=== PATIENT | female | born 1965 | race African-American/Black ===

== ENCOUNTER 2019-02-10 11:09 | Inpatient (IN) | payer OTHER ==
[2019-02-01 12:12] VITALS: BMI 35.9
[2019-02-10] MEDS ORDERED: BUPIVACAINE LIPOSOME/PF (EXPAREL) 266 MG/20 ML VIAL ONE (11:50)
[2019-02-10] MEDS ORDERED: SODIUM CHLORIDE 0.9% P/F 10 ML VIAL IJ ONE (11:50)
[2019-02-10] MEDS ORDERED: MIDAZOLAM HCL 2 MG/2 ML SINGLE DOSE VIAL ONE ×2 (11:50→15:04)
[2019-02-10] MEDS ORDERED: TRANEXAMIC ACID 1000 MG/10 ML VIAL IVPUSH ONE (13:20)
[2019-02-10] MEDS ORDERED: VANCOMYCIN 1,000 MG in DEXTROSE 5%-WATER - 250 ML IVPB ONE (13:20)
[2019-02-10] MEDS ORDERED: CEFAZOLIN 2 GM in DEXTROSE 5%-WATER - 50 ML IVPB ONE (13:20)
[2019-02-10] MEDS ORDERED: BUPIVACAINE HCL/PF 0.5% (5MG/ML) 10 ML VIAL ONE (15:02)
--- NOTE | 2019-02-10 15:12 | HP ---
CHIEF COMPLAINT: PCP: Dr. Burrell [facility] [phone] HISTORY OF PRESENT ILLNESS: 54 year-old female with a PMH significant for HLD, asthma, and right knee osteoarthritis s/p right total knee replacement today with Dr. Colby Harvey. Recent Travel: No PAST MEDICAL HISTORY: Hyperlipidemia Asthma Osteoarthritis PAST SURGICAL HISTORY: None reported Social History: Smoking: never Alcohol: social Drugs: no Allergies No Known Allergies Allergy (Verified 02/10/19 13:59) HOME MEDICATIONS: Home Medications Medication Instructions Recorded Cholecalciferol (Vitamin D3) 2,000 unit PO DAILY 02/01/19 [Vitamin D] Ferrous Sulfate 325 mg PO DAILY 02/01/19 Meloxicam 15 mg PO DAILY PRN 02/01/19 REVIEW OF SYSTEMS CONSTITUTIONAL: Absent: fever, chills, diaphoresis, generalized weakness, malaise, loss of appetite, weight change HEENT: Absent: rhinorrhea, nasal congestion, throat pain, throat swelling, difficulty swallowing, mouth swelling, ear pain, eye pain, visual changes CARDIOVASCULAR: Absent: chest pain, syncope, palpitations, irregular heart rate, lightheadedness , peripheral edema RESPIRATORY: Absent: cough, shortness of breath, dyspnea with exertion, orthopnea, wheezing, stridor, hemoptysis GASTROINTESTINAL: Absent: abdominal pain, abdominal distension, nausea, vomiting, diarrhea, constipation, melena, hematochezia GENITOURINARY: Absent: dysuria, frequency, urgency, hesitancy, hematuria, flank pain, genital pain MUSCULOSKELETAL: Absent: myalgia, arthralgia, joint swelling, back pain, neck pain SKIN: Absent: rash, itching, pallor HEMATOLOGIC/IMMUNOLOGIC: Absent: easy bleeding, easy bruising, lymphadenopathy, frequent infections ENDOCRINE: Absent: unexplained weight gain, unexplained weight loss, heat intolerance, cold intolerance NEUROLOGIC: Absent: headache, focal weakness or paresthesias, dizziness, unsteady gait, seizure, mental status changes, bladder or bowel incontinence PSYCHIATRIC: Absent: anxiety, depression, suicidal or homicidal ideation, hallucinations. PHYSICAL EXAMINATION Vital Signs - 24 hr 02/10/19 02/10/19 14:00 14:06 Temperature 97.6 F Pulse Rate 76 Respiratory 16 Rate Blood Pressure 128/75 O2 Sat by Pulse 98 Oximetry (%) GENERAL: Awake, alert, and fully oriented, in no acute distress. HEAD: Normal with no signs of trauma. EYES: Pupils equal, round and reactive to light, extraocular movements intact, sclera anicteric, conjunctiva clear. No lid lag. LUNGS: Breath sounds equal, clear to auscultation bilaterally. No wheezes, and no crackles. No accessory muscle use. HEART: Regular rate and rhythm, normal S1 and S2 ABDOMEN: Soft, nontender, not distended UPPER EXTREMITIES: 2+ pulses, warm, well-perfused. No cyanosis. No clubbing. No peripheral edema. RIGHT LOWER EXTREMITY: Leg immobilizer, ice pack, surgical dressings c/d/i; flex /extend toes, diminished sensory bilaterally NEUROLOGICAL: Cranial nerves II-XII intact. Normal speech. Laboratory Results - last 24 hr 02/10/19 13:30 Urine HCG, Qual Negative Pre op BUN 13 Cr 0.5 Hgb 13.6 Intra op Ancef 2g x 1 Vanc 1g x 1 LR 1,200 mL EBL <100 mL ASSESSMENT/PLAN: 54 year-old female with a PMH significant for HLD, asthma, and right knee osteoarthritis s/p right total knee replacement. Right total knee replacement --POD #0 --perioperative antibiotics per surgery --pain management per surgery --ASA 81mg BID --protonix --bowel regimen --incentive spirometry --Hemovac drain, monitor output --monitor urine output; if no UOP in [address] Darwin Harvey prior to intervention FEN Fluids: LR @ 75mL/hr Electrolytes: replete as indicated Nutrition: regular diet DVT prophylaxis: OOB, ambulation, SCDs, TEDs, ASA 81mg BID Physical therapy Dispo: continues to require inpatient care. Full code. Visit type - Emergency Visit Emergency Visit: No - New Patient This patient is new to me today: Yes Date on this admission: 02/10/19 - Critical Care Critical Care patient: No
[2019-02-10] MEDS ORDERED: oxyCODONE HCL 5 MG TABLET PO PRN (15:28)
[2019-02-10] MEDS ORDERED: ONDANSETRON 4 MG/2 ML VIAL IVPUSH PRN (15:28)
[2019-02-10] MEDS ORDERED: LACTATED RINGERS SOLUTION 1,000 ML IV SCH ×3 (15:30→18:48)
[2019-02-10] MEDS ORDERED: VANCOMYCIN 1,000 MG VIAL (RESTRICTED TO ID ONLY) ONE (16:06)
[2019-02-10] MEDS ORDERED: ceFAZolin SODIUM 1 GM VIAL ONE ×2 (16:06→17:54)
[2019-02-10] MEDS ORDERED: TRANEXAMIC ACID 1000 MG/10 ML VIAL ONE (16:06)
[2019-02-10] MEDS ORDERED: ONDANSETRON 4 MG/2 ML VIAL ONE (16:06)
[2019-02-10] MEDS ORDERED: PROPOFOL 20 ML ONE ×2 (16:18→16:57)
[2019-02-10] MEDS ORDERED: ACETAMINOPHEN 1000 MG/100 ML VIAL (NON FORMULARY) IVPB ONE (18:22)
[2019-02-10] MEDS ORDERED: MAG HYDROX/AL HYDROX/SIMETH 30 ML UNIT-DOSE CUP PO PRN (18:26)
[2019-02-10] MEDS ORDERED: MAGNESIUM HYDROX 2400MG/30ML ORAL SUSPENSION 30 ML CUP PO PRN (18:26)
--- NOTE | 2019-02-10 18:38 | OP ---
Operative Note - Note: Operative Date: 02/10/19 Pre-Operative Diagnosis: right knee osteoarthritis Operation: s/p right total knee replacment Surgeon: Colby Harvey [employer] Inspector: Lorri Rosenberg Anesthesiologist/DEPUTY CONTROLLER: Selvin Schultz Anesthesia: General Estimated Blood Loss (mls): 50 Fluid Volume Replaced (mls): 1,200 Operative Report Dictated: Yes
--- NOTE | 2019-02-10 18:47 | SURG ---
Surgery Manager Commercial Sales Note Manager Commercial Sales: Lorri Rosenberg PA-C Date of Service: 02/10/19 Diagnosis: right knee osteoarthritis Procedure: =s/p right total knee replacement I was present for the entirety of the operative procedure. For further detail, please refer to operative report. Visit type - Case Type Case Type: Scheduled - Emergency Emergency Visit: No - New patient This patient is new to me today: Yes Date on this admission: 02/10/19
[2019-02-10] MEDS: oxyCODONE HCL 10 MG SUSTAINED ACTING TABLET PO SCH (21:35)
[2019-02-10] MEDS: ASPIRIN COATED 81 MG TABLET.EC PO SCH (21:35)
[2019-02-10] MEDS: SENNOSIDES/DOCUSATE COMBO (SENNA PLUS) TABLET (UD) PO SCH (21:36)
[2019-02-10] MEDS: ONDANSETRON 4 MG/2 ML VIAL IVPUSH PRN (23:41)
[2019-02-11] MEDS: oxyCODONE HCL 5 MG TABLET PO PRN ×2 (00:23→04:59)
[2019-02-11] MEDS: CEFAZOLIN 2 GM/D5W 2 GM/50 ML ML IVPB SCH ×2 (02:29→10:20)
--- NOTE | 2019-02-11 07:47 | PN ---
Progress Note (short form) - Note Progress Note: Surgery POD #1 Right TKA patient seen and examined at bedside c/o pain which is not controlled by the pain medication. She has not been OOB yet with PT and states she vomited once last night. She denies any CP, SOB, N/V, fever or chills. Vital Signs Temp 99.5 F 02/11/19 04:00 Pulse 89 02/11/19 04:00 Resp 18 02/11/19 04:00 BP 120/64 02/11/19 04:00 Pulse Ox 96 02/11/19 04:00 Intake & Output 02/10/19 02/10/19 02/11/19 11:59 23:59 11:59 Intake Total 4700 Output Total 0 20 Balance 4700 -20 Weight 209 lb Intake: IV 1300 Oral 400 Other 3000 Output: Drainage 20 TAD# 20 Urine 0 Void 0 Other: Voiding Method Bedpan Bedpan # Unmeasured Voids Void 1 Height 5 ft 4 in Body Mass Index (BMI) 35.9 Weight Measurement Method Standing Scale CBC, BMP 02/11/19 07:28 02/11/19 07:28 PE: A&Ox3, NAD Unlabored resp on RA right knee dressing c/d/i with no evidence of active bleeding, hemavac drain in good position and draining bloody d/c. LE compartments soft, supple with mild edema and TTP of right LE appropriate to status. 5/5 dorsi/plantar flexion with +2 DP pulses. Problem List - Problems (1) Knee osteoarthritis Assessment/Plan: POD#1 patient with pain not well controlled. I discussed the pain management options with anesthesia and will adjust accordingly. -Scheduled Tylenol around the clock -Oxycodone 10mg PO once now -OOB with PT, WBAT with assist -DVT prophylaxis with b/l teds, scds and Aspirin 81mg BIDx 6 wks -Encourage daily IS -empty and measure drain -rolled towel under ankle at all times -strict I&O -D/c planning for tomorr vs Friday Code(s): M17.10 - UNILATERAL PRIMARY OSTEOARTHRITIS, UNSPECIFIED KNEE
[2019-02-11 08:00] LABS: CALCIUM 8.3 mg/dl (8.5-10); CREATININE 0.6 mg/dl (0.55-1.3)
[2019-02-11 08:02] LABS: HEMATOCRIT 34.4 % (32.4-45.2); HEMOGLOBIN 11.9 GM/dl (10.7-15.3); MCH 29.3 pg (25.7-33.7); MCHC 34.5 g/dl (32.0-36.0); MEAN CELL VOLUME 84.8 fl (80-96); MEAN PLT VOLUME 8.7 fl (7.5-11.1); PLATELET COUNT 244 K/MM3 (134-434); RBC 4.05 M/mm3 (3.60-5.2); RDW 13.4 % (11.6-15.6); WHITE BLOOD COUNT 7.8 K/mm3 (4.0-10.8)
--- NOTE | 2019-02-11 08:09 | PN ---
Physical Exam: SUBJECTIVE: Patient seen and examined. Was observed earlier today by PT and surgical PA to be overly sedated. Patient also with nausea. At time of this exam patient is much more alert but still with nausea. Discussed with patient high dose opioids can cause nausea, constipation, and decreased ability to participate in PT. Patient expressed understanding and agrees to lowering of dose of oxycodone. OBJECTIVE: Vital Signs Period Temp Pulse Resp BP Sys/Kowalski Pulse Ox Last 24 Hr 97.6 F-99.5 F 56-89 16-18 120-133/64-82 96-100 GENERAL: Awake, alert, and fully oriented, in no acute distress. LUNGS: Breath sounds equal, clear to auscultation bilaterally. No wheezes, and no crackles. No accessory muscle use. HEART: Regular rate and rhythm, normal S1 and S2 ABDOMEN: Soft, nontender, not distended UPPER EXTREMITIES: 2+ pulses, warm, well-perfused. No cyanosis. No clubbing. No peripheral edema. RIGHT LOWER EXTREMITY: Leg immobilizer, ice pack, surgical dressings c/d/i; flex /extend toes NEUROLOGICAL: Cranial nerves II-XII intact. Normal speech. ASSESSMENT/PLAN: 54 year-old female with a PMH significant for HLD, asthma, and right knee osteoarthritis s/p right total knee replacement. Right total knee replacement --POD #1 --perioperative antibiotics per surgery --pain management per surgery --ASA 81mg BID --protonix --bowel regimen --incentive spirometry --Hemovac drain, monitor output --monitor urine output FEN Fluids: PO intake adequate Electrolytes: replete as indicated Nutrition: regular diet DVT prophylaxis: OOB, ambulation, SCDs, TEDs, ASA 81mg BID Physical therapy Dispo: continues to require inpatient care. Full code. Laboratory Results - last 24 hr 02/10/19 02/11/19 13:30 07:28 WBC 7.8 RBC 4.05 Hgb 11.9 Hct 34.4 MCV 84.8 MCH 29.3 MCHC 34.5 RDW 13.4 Plt Count 244 MPV 8.7 Urine HCG, Qual Negative Active Medications Generic Name Dose Route Start Last Admin Trade Name Freq PRN Reason Stop Dose Admin Acetaminophen 1,000 mg 02/11/19 12:30 Tylenol - PO 02/12/19 00:31 Q6H PINO Al Hydroxide/Mg Hydroxide 30 ml 02/10/19 18:26 Mylanta Oral Suspension - PO Q4H PRN DYSPEPSIA Aspirin 80 mg 02/10/19 22:00 02/10/19 21:35 Ecotrin - PO 80 mg BID PINO Administration Cefazolin Sodium/Dextrose 2 gm in 50 mls @ 100 mls/hr 02/11/19 02:00 02:29 Ancef 2 Gm Premixed Ivpb - IVPB 02/11/19 10:29 100 mls/hr Q8H-IV PINO Administration Magnesium Hydroxide 30 ml 02/10/19 18:26 Milk Of Magnesia - PO PRN PRN CONSTIPATION Multivitamins/Minerals/Vitamin C 1 tab 02/11/19 10:00 Tab-A-Vit - PO DAILY PINO Ondansetron HCl 4 mg 02/10/19 18:26 02/10/19 23:41 Zofran Injection IVPUSH 4 mg Q6H PRN Administration NAUSEA Oxycodone HCl 5 mg 02/10/19 15:28 Roxicodone - PO Q4H PRN PAIN LEVEL 1-5 Oxycodone HCl 10 mg 02/10/19 15:28 02/11/19 04:59 Roxicodone - PO 10 mg Q4H PRN Administration PAIN LEVEL 6-10 Oxycodone HCl 10 mg 02/10/19 22:00 02/10/19 21:35 Oxycontin - PO 10 mg BID PINO Administration Oxycodone HCl 10 mg 02/11/19 08:15 Roxicodone - PO 02/11/19 08:16 ONCE ONE Pantoprazole Sodium 40 mg 02/11/19 10:00 Protonix - PO DAILY [facility] Senna/Docusate Sodium 2 tablet 02/10/19 22:00 02/10/19 21:36 Pericolace - PO 2 tablet BID PINO Administration Pre op BUN 13 Cr 0.5 Hgb 13.6 Intra op Ancef 2g x 1 Vanc 1g x 1 LR 1,200 mL EBL <100 mL ASSESSMENT/PLAN: 54 year-old female with a PMH significant for HLD, asthma, and right knee osteoarthritis s/p right total knee replacement. Right total knee replacement --POD #1 --perioperative antibiotics complete --pain management per surgery; deescalate oxycodone dosing --ASA 81mg BID --protonix --bowel regimen --incentive spirometry --Hemovac drain, monitor output --monitor urine output FEN Fluids: PO intake adequate Electrolytes: replete as indicated Nutrition: regular diet DVT prophylaxis: OOB, ambulation, SCDs, TEDs, ASA 81mg BID Physical therapy Dispo: continues to require inpatient care. Full code. Visit type - Emergency Visit Emergency Visit: No - New Patient This patient is new to me today: No - Critical Care Critical Care patient: No
[2019-02-11] MEDS: ONDANSETRON 4 MG/2 ML VIAL IVPUSH PRN ×2 (08:10→13:46)
[2019-02-11] MEDS ORDERED: oxyCODONE HCL 5 MG TABLET PO ONE (08:15)
[2019-02-11 08:29] LABS: MAGNESIUM 1.6 mg/dL (1.8-2.4)
[2019-02-11] MEDS: ACETAMINOPHEN 500 MG TABLET (FP) PO SCH ×3 (08:44→21:09)
[2019-02-11] MEDS ORDERED: MAGNESIUM SULF 50% (8.12 MEQ/2 ML-1 GM VIAL) IVPB ONE (08:53)
[2019-02-11] MEDS ORDERED: MAGNESIUM SULFATE IN WATER 2 GM/50 ML IVPB IVPB ONE (09:15)
[2019-02-11] MEDS: SENNOSIDES/DOCUSATE COMBO (SENNA PLUS) TABLET (UD) PO SCH ×2 (10:15→21:10)
[2019-02-11] MEDS: MULTIVITAMINS (DAILY MVI) TABLET (FP) PO SCH (10:16)
[2019-02-11] MEDS: PANTOPRAZOLE 40 MG TABLET (FP) PO SCH (10:17)
[2019-02-11] MEDS: oxyCODONE HCL 10 MG SUSTAINED ACTING TABLET PO SCH ×2 (10:17→21:22)
[2019-02-11] MEDS: ASPIRIN COATED 81 MG TABLET.EC PO SCH ×3 (10:19→21:10)
--- NOTE | 2019-02-11 10:56 | PN ---
Progress Note (short form) - Note Progress Note: 54F POD#1 for R TKR under spinal anesthesia with PNB. This am pt. seen participating in physical therapy. No anesthesia related complications. Pt. ambulating. Pain adequately controlled. Continue management per primary team.
[2019-02-11] MEDS ORDERED: ACETAMINOPHEN 500 MG TABLET (FP) PO SCH (12:30)
--- NOTE | 2019-02-11 13:33 | OP ---
DATE OF OPERATION: DATE OF DICTATION: 02/10/2019 SURGEON: Colby Harvey MD ELECTRONIC ASSEMBLER: ULI Eric PREOPERATIVE DIAGNOSES: Right tricompartment osteoarthritis, knee with fixation deformity of 25 degrees and fixed varus deformity of 20 degrees. POSTOPERATIVE DIAGNOSES: Right tricompartment osteoarthritis, knee with fixation deformity of 25 degrees and fixed varus deformity of 20 degrees. OPERATION PERFORMED: Right posterior-stabilized, cemented total knee arthroplasty ([place]). Patient correctly identified, brought to the operating room. Right lower extremity was prepped and draped in the routine manner with Betadine scrub solution, wiped off with alcohol. DuraPrep applied. Midline incision was utilized. A subvastus approach was utilized. The proximal and medial aspect of the tibia was dissected along the course of the tibia up to the joint line and then curved backwards, back to the posteromedial aspect of the femur, leaving a cuff of tissue of 2 cm and this cut parallel to the border of vastus medialis. This extended all the way around the back of the vastus medialis to lift the vastus medialis well above the suprapatellar pouch. A blunt Hohmann was placed between the quadriceps muscles and the actual bone bed. The patella was subluxed laterally. The Hoffa fat pad was resected. Severe tricompartment arthritis encountered with extensive meniscal disruption. Using the [place] instrumentation, the tibia was cut to neutral to receive a size 5 tibial tray. The appropriate keel punch and drill guides were made. Drilling was to accommodate a stubby placed on the distal tip of the tibia. The femur itself was cut with 2 mm proximalization of the joint line because of the fixation deformity. The bone cuts were made with the appropriate jig set at 3 degrees of external rotation and 4 degrees of valgus. The bone cuts were made. The flexion gaps and the extension gaps were measured at 9 mm and stable. The trial components revealed excellent seating of the implants and full stability in the coronal and sagittal plane, both at 0 and 90 degrees of flexion and shock test, that is test of the medial collateral ligament in the medial compartment of the joint, was most satisfactory. The talar cut was made from [place] line to patellar ligament. The appropriate lug holes were drilled into the patella. Once we were happy with the trialing of the femoral, tibial, and patellar components and the knee was balanced with an excellent full range of motion and complete stability in the coronal and sagittal roatational plane as noted above cementing was in 1 stage with standard cement. All extraneous cement was removed after it had cured. A 9-mm polyethylene posterior-stabilized component inserted. This brought about the exact same findings as the trialing components. Wounds were thoroughly lavaged. No complications. Closure: Retinacular tissue 1 Vicryl, subcutaneous 1 and 2-0 Vicryl, skin 3-0 Monocryl and Steri-Strips. Drainage: A 1/8-inch Hemovac brought out laterally, draining the vastus bed. MD CONOR Urban/[id number] MTDD
[2019-02-12 06:23] VITALS: BP 140/72; PULSE 88; TEMP 98.7
[2019-02-12] MEDS ORDERED: ACETAMINOPHEN 325 MG TABLET (FP) PO ONE (07:45)
[2019-02-12 07:57] LABS: HEMATOCRIT 33.9 % (32.4-45.2); HEMOGLOBIN 11.2 GM/dl (10.7-15.3); MCHC 33.1 g/dl (32.0-36.0); MEAN CELL VOLUME 84.4 fl (80-96); MEAN PLT VOLUME 8.8 fl (7.5-11.1); PLATELET COUNT 238 K/MM3 (134-434); RBC 4.01 M/mm3 (3.60-5.2); RDW 13.4 % (11.6-15.6); WHITE BLOOD COUNT 9.7 K/mm3 (4.0-10.8)
--- NOTE | 2019-02-12 07:58 | DS ---
"Physical Exam: SUBJECTIVE: Patient seen and examined. Feels much better after stopping opioids. Got significant pain relief with Toradol. Able to participate in two PT sessions today. OBJECTIVE: Vital Signs Period Temp Pulse Resp BP Sys/Kowalski Pulse Ox Last 24 Hr 97.6 F-99.0 F 68-88 17-18 120-140/64-78 94-99 PHYSICAL EXAM GENERAL: Awake, alert, and fully oriented, in no acute distress. LUNGS: Breath sounds equal, clear to auscultation bilaterally. No wheezes, and no crackles. No accessory muscle use. HEART: Regular rate and rhythm, normal S1 and S2 ABDOMEN: Soft, nontender, not distended UPPER EXTREMITIES: 2+ pulses, warm, well-perfused. No cyanosis. No clubbing. No peripheral edema. RIGHT LOWER EXTREMITY: Leg immobilizer, ice pack, surgical dressings c/d/i; flex /extend toes NEUROLOGICAL: Cranial nerves II-XII intact. Normal speech. LABS Laboratory Results - last 24 hr 02/11/19 02/11/19 07:28 07:28 WBC 7.8 RBC 4.05 Hgb 11.9 Hct 34.4 MCV 84.8 MCH 29.3 MCHC 34.5 RDW 13.4 Plt Count 244 MPV 8.7 Sodium 134 L Potassium 4.0 Chloride 99 Carbon Dioxide 26 Anion Gap 9 BUN 9.0 Creatinine 0.6 Est GFR (CKD-EPI)AfAm 118.93 Est GFR (CKD-EPI)NonAf 102.61 Random Glucose 139 H Calcium 8.3 L Magnesium 1.6 L HOSPITAL COURSE: Date of Admission:02/10/19 Date of Discharge: 02/12/19 54 year-old female with a PMH significant for HLD, asthma, and right knee osteoarthritis s/p right total knee replacement on 02/10/[address] Colby Harvey. Right total knee replacement --perioperative antibiotics complete --did not tolerate opioids, became oversedated, with nausea, vomiting; pain well-managed at time of discharge with Tylenol and Toradol --ASA 81mg BID x 6 weeks Minutes to complete discharge: 35 Discharge Summary Problems reviewed: Yes Reason For Visit: OSTEOARTHRITIS BILATERAL KNEES Current Active Problems Knee osteoarthritis (Acute) Condition: Improved - Instructions Diet, Activity, Other Instructions: A prescription has been sent to your pharmacy for toradol which you can take for pain. Take as directed. Dr. Harvey Discharge Instructions for Knee Replacement Post Operative Instructions Physical activity Physical Therapist will come to your home for the first 5 days. You will be set up with outpatient PT at your first post-operative visit. Use assistive devices for ambulation at all times. Weight bearing as tolerated on your surgical side. Do not put pillow under knee. May put pillow under heel. Wound care Leave your surgical dressing in place. Do not change the dressing until seen by your surgeon in the office. No baths or showers. Do not submerge your incision. Do not apply any ointments or lotions to your incision. Please call the office if your dressing is soiled/dirty or is falling off. Apply Graduated Compression Stockings (TEDS) to both lower extremities - remove daily for hygiene ONLY. Diet There are no dietary restrictions. Eat healthy, high-fiber foods. Drink 6 to 8 glasses of liquid each day. This will assist in keeping your bowels are regular. Pain management Any pain prescription medication ordered should be taken as prescribed for moderate to severe pain. Do not take additional Tylenol while taking Percocet. Take Aspirin 81 mg two times a day for a total of 6 weeks to prevent blood clots. Call Dr. Harvey for any of the following: Severe pain not relieved by medication Fever of 101 or higher Excessive bleeding or drainage on dressing Inability to urinate If you experience chest pain or shortness of breath, please seek emergency care immediately. Please call the office at to confirm your post-op appointment for the week following surgery. This report was requested by: Lorri Rosenberg | Reference #: [id number] Referrals: Colby Harvey MD [Staff Physician] - Disposition: HOME - Home Medications Comprehensive Discharge Medication List: Ambulatory Orders Cholecalciferol (Vitamin D3) [Vitamin D] 2,000 unit PO DAILY 02/01/19 Ferrous Sulfate 325 mg PO DAILY 02/01/19 Meloxicam 15 mg PO DAILY PRN 02/01/19 This patient is new to me today: No Emergency Visit: No Critical Care patient: No - Discharge Referral Referred to [facility] No"
[2019-02-12] MEDS ORDERED: KETOROLAC TROMETHAMINE 30 MG/1 ML VIAL IVPUSH ONE (08:15)
--- NOTE | 2019-02-12 08:51 | PN ---
Progress Note (short form) - Note Progress Note: Surgery POD #2 Right TKA patient seen and examined at bedside patient states her pain is better controlled after the adjustments were made yesterday. She has been OOB with PT and states she is no longer vomiting but still has nausea which is improved with zofran. She denies any CP, SOB, N/V, fever or chills. Vital Signs Temp 98.7 F 11 06:20 Pulse 88 02/12/19 06:20 Resp 16 02/12/19 08:36 BP 140/72 02/12/19 06:20 Pulse Ox 96 02/12/19 08:36 Intake & Output 02/11/19 02/11/19 02/12/19 11:59 23:59 11:59 Intake Total 520 780 450 Output Total 20 10 0 Balance 500 770 450 Intake: Oral 520 780 450 Output: Drainage 20 10 0 TAD# 20 10 0 Other: Voiding Method Toilet Toilet Toilet # Unmeasured Voids Void 1 2 Bowel Movement No CBC, BMP 02/12/19 07:21 02/11/19 07:28 PE: A&Ox3, NAD Unlabored resp on RA right knee incision c/d/i with no evidence of active bleeding, hemavac drain removed with tip fully intact. LE compartments soft, supple with mild edema and TTP of right LE appropriate to status. 5/5 dorsi/plantar flexion with +2 DP pulses. Problem List - Problems (1) Knee osteoarthritis Assessment/Plan: POD#2 patient with pain controlled. -OOB with PT, WBAT with assist -DVT prophylaxis with b/l teds, scds and Aspirin 81mg BIDx 6 wks -Encourage daily IS -rolled towel under ankle at all times -strict I&O -D/c planning for home today after second PT evaluation. Evaluation and plan discussed with Dr Harvey. Code(s): M17.10 - UNILATERAL PRIMARY OSTEOARTHRITIS, UNSPECIFIED KNEE
[2019-02-12] MEDS: MULTIVITAMINS (DAILY MVI) TABLET (FP) PO SCH (10:30)
[2019-02-12] MEDS: ASPIRIN COATED 81 MG TABLET.EC PO SCH (10:30)
[2019-02-12] MEDS: SENNOSIDES/DOCUSATE COMBO (SENNA PLUS) TABLET (UD) PO SCH (10:30)
[2019-02-12] MEDS: PANTOPRAZOLE 40 MG TABLET (FP) PO SCH (10:30)
[2019-02-12] MEDS: oxyCODONE HCL 10 MG SUSTAINED ACTING TABLET PO SCH (10:31)
--- NOTE | 2019-02-17 12:49 | PATH ---
Surgical Pathology Report Patient Name: CHITO MULLIGAN Med. Rec. #: [id number] /Age/Gender: 1965 (Age: 54) / F Account: [id number] Location: [facility] MED-SURG Taken: 02/10/2019 Received: 02/10/2019 Reported: 02/17/2019 Physicians: Colby Harvey M.D. Specimen(s) Received RIGHT KNEE BONES Clinical History Osteoarthritis right knee Final Diagnosis KNEE BONES, RIGHT, TOTAL KNEE REPLACEMENT: DEGENERATIVE JOINT DISEASE. Electronically Signed Pat Polk M.D. Gross Description Received in formalin labeled "right knee bones," is a 13.0 x 9.5 x 2.0 cm aggregate of multiple portions of bone and soft tissue. The tibial plateau measures 7.7 x 5.4 x 1.7 cm. There is a 1.5 cm in greatest dimension area of eburnation present. The remaining articular surfaces are rea-yellow and focally nodular and granular. The underlying trabecular bone is yellow and hard. Pig Farm Manager sections are submitted in one cassette, following decalcification. /02/11/2019 [facility]02/11/2019
== END 2019-02-12 15:07 | disposition home or self-care (01) | DRG 470 ==
LOC: FM/S 11:09
PROVIDERS: ADMIT Orthopaedic Surgery Orthopaedic Surgery of the Spine; ATTEND Nurse Practitioner Acute Care
PROC: 0SRC0J9 Replacement of Right Knee Joint with Synthetic Substitute, Cemented, Open Approach (ICD-10-PCS; principal; 2019-02-10 16:01)
DX: M17.11 Unilateral primary osteoarthritis, right knee (principal); J45.909 Unspecified asthma, uncomplicated; E78.5 Hyperlipidemia, unspecified
CPT/HCPCS: 36415; 73560-TC-RT-FY; 80048; 83735; 84703; 85027; 88304-TC; 88311-TC; 94760; 97116-GP; 97163-GP; J0131